=== PATIENT | female | born 2000 | race Caucasian/White ===

== ENCOUNTER 2020-12-14 20:56 | Day surgery (SDC) | payer OTHER ==
[2020-12-14 21:12] VITALS: BMI 28.3
[2020-12-14] MEDS ORDERED: hydrALAZINE 20 MG/ML VIAL SLOW IVP PRN (21:22)
[2020-12-14] MEDS ORDERED: Butorphanol Tartrate 1 MG/ML VIAL SLOW IVP PRN (21:26)
[2020-12-14] MEDS ORDERED: Lactated Ringer's 1,000 ML IV SCH (21:30)
[2020-12-14 21:55] LABS: Bilirubin Neg (Negative); Blood, Urine 10 (Negative); Clarity Clear (Clear); Glucose, Urine (Dipstick) 50 mg/dL (Negative); Ketone, Urine Negative (Negative); Leukocyte Negative (Negative); Nitrite Negative (Negative); Protein, Urine (Dipstick) 15 mg/dl (Neg-Trace); Specific Gravity, Urine 1.015 (1.002-1.036); Urobilinogen Normal mg/dL (Less than 2); pH, Urine 6.5 (5.0-9.0)
[2020-12-14 22:31] LABS: Urine Culture Reflex No No
[2020-12-14 22:41] LABS: RBC/HPF 0-3 HPF (0-3); Squamous Epithelial 0-3 HPF (0-3); WBC/HPF 0-3 HPF (0-3)
[2020-12-14 22:42] LABS: Bacteria/HPF Rare-Few HPF (None Seen)
== END 2020-12-14 23:15 | disposition home or self-care (01) ==
LOC: CSHLD/OP 20:56
PROVIDERS: ATTEND Obstetrics & Gynecology
DX: O47.03 False labor before 37 completed weeks of gestation, third trimester (principal); O99.891 Other specified diseases and conditions complicating pregnancy; R10.30 Lower abdominal pain, unspecified; Z3A.34 34 weeks gestation of pregnancy; Z79.899 Other long term (current) drug therapy
CPT/HCPCS: 51701; 81001; 99283

== ENCOUNTER 2023-06-07 00:47 | Day surgery (SDC) | payer OTHER ==
[2023-06-07] MEDS ORDERED: hydrALAZINE 20 MG/ML VIAL SLOW IVP PRN (01:49)
[2023-06-07 04:53] VITALS: BMI 27.4
[2023-06-07] MEDS ORDERED: Lactated Ringer's 1,000 ML IV SCH (05:00)
== END 2023-06-07 05:06 | disposition home or self-care (01) ==
LOC: CSHLD/OP 00:47
PROVIDERS: ATTEND Obstetrics & Gynecology
DX: O26.853 Spotting complicating pregnancy, third trimester (principal); Z3A.36 36 weeks gestation of pregnancy
CPT/HCPCS: 76815; 76819; 96360; 99283

== ENCOUNTER 2023-06-07 19:42 | Observation (INO) | payer OTHER ==
[2023-06-07 21:26] VITALS: BMI 28.3
[2023-06-07] MEDS ORDERED: hydrALAZINE 20 MG/ML VIAL SLOW IVP PRN ×2 (22:52→22:53)
[2023-06-07] MEDS ORDERED: Acetaminophen 500 MG TAB PO PRN (22:53)
[2023-06-07] MEDS ORDERED: Ondansetron PF 4 MG/2 ML Vial IVP PRN (22:53)
[2023-06-07] MEDS ORDERED: fentaNYL 50 mcg/mL 1 mL Vial SLOW IVP PRN (22:53)
[2023-06-07] MEDS ORDERED: Promethazine HCl 25 MG/ML VIAL IM PRN (22:53)
[2023-06-07] MEDS ORDERED: Dextrose 5%-Lactated Ringers 1,000 ML IV SCH (23:00)
[2023-06-07] MEDS ORDERED: Lactated Ringer's 1,000 ML IV SCH (23:00)
[2023-06-07] MEDS ORDERED: hydrOXYzine Pamoate 25 mg Capsule PO SCH (23:15)
[2023-06-08] MEDS ORDERED: Betamet Acet/Betamet Na Ph 30 MG/5 ML VIAL IM SCH (08:45)
[2023-06-08 09:47] LABS: Bilirubin Neg (Negative); Blood, Urine 10 (Negative); Clarity Clear (Clear); Glucose, Urine (Dipstick) 100 mg/dL (Negative); Ketone, Urine 5 mg/dL (Negative); Leukocyte Negative (Negative); Nitrite Negative (Negative); Protein, Urine (Dipstick) 30 mg/dl (Neg-Trace); Specific Gravity, Urine 1.025 (1.005-1.030)
[2023-06-08 09:57] LABS: Bacteria/HPF None Seen HPF (None Seen); CAUTI Indications for Culture Pregnancy; RBC/HPF None Seen HPF (0-3); Squamous Epithelial 0-3 HPF (0-3); WBC/HPF 0-3 HPF (0-3)
[2023-06-08 09:58] LABS: Urine Culture Reflex Yes Yes
[2023-06-08] MEDS ORDERED: hydrOXYzine Pamoate 25 mg Capsule PO SCH ×2 (21:00)
== END 2023-06-08 10:31 | disposition home or self-care (01) ==
LOC: CSHLD/OP 19:42 → CSHLD 22:53 → UNDOADMOB 06-08 00:16 → CSHLD 06-08 00:16 → UNDODISOB 06-08 10:31
PROVIDERS: ADMIT Obstetrics & Gynecology; ATTEND Obstetrics & Gynecology
DX: O47.03 False labor before 37 completed weeks of gestation, third trimester (principal); Z3A.36 36 weeks gestation of pregnancy; O26.853 Spotting complicating pregnancy, third trimester
CPT/HCPCS: 76815; 76819; 81001; 87086; 96360; 96361; 99283; G0378; J0702; Q0177

== ENCOUNTER 2023-06-15 09:00 | Inpatient (IN) | payer OTHER ==
[2023-06-15] MEDS ORDERED: Misoprostol 200 MCG TAB PR PRN ×2 (09:08→15:19)
[2023-06-15] MEDS ORDERED: Ondansetron PF 4 MG/2 ML Vial IVP PRN ×3 (09:08→15:19)
[2023-06-15] MEDS ORDERED: Famotidine/PF 20 mg/2ml Vial SLOW IVP PRN (09:08)
[2023-06-15] MEDS ORDERED: Promethazine HCl 25 MG/ML VIAL IM PRN ×2 (09:08→10:19)
[2023-06-15] MEDS ORDERED: hydrALAZINE 20 MG/ML VIAL SLOW IVP PRN ×2 (09:08→15:19)
[2023-06-15] MEDS ORDERED: Diphenoxylate HCl/Atropine Tablet PO PRN ×2 (09:08)
[2023-06-15] MEDS ORDERED: Carboprost 250 MCG/ML AMP IM PRN (09:08)
[2023-06-15] MEDS ORDERED: Bicitra 30 ML UDCUP PO PRN (09:08)
[2023-06-15] MEDS ORDERED: Lactated Ringer's 1,000 ML IV SCH (09:15)
[2023-06-15] MEDS ORDERED: Oxytocin 30 units/NS 500 ML 500 ML IV SCH (09:15)
[2023-06-15] MEDS ORDERED: CEFAZOLIN 2 GM in Sodium Chloride 0.9% 100 ML IVPB SCH (09:15)
[2023-06-15 09:52] VITALS: BMI 28.0
[2023-06-15 09:54] LABS: Hematocrit 32.1 % (34.9-44.5); Hemoglobin 10.6 g/dL (12.0-15.5); Mean Corpuscular Hemoglobin 26.9 pg (27.0-33.0); Mean Corpuscular Volume 81.5 fl (81.6-98.3); Mean Platelet Volume 10.1 fl (7.4-10.4); Platelet Count 271 10x3/uL (150-450); RBC Distribution Width 14.5 % (11.5-14.5); Red Blood Cell (RBC) Count 3.94 10x6/uL (3.90-5.03); White Blood Cell (WBC) Count 13.1 10x3/uL (3.5-10.5)
[2023-06-15] MEDS ORDERED: Promethazine HCl 25 MG SUPP PR PRN (10:19)
[2023-06-15] MEDS ORDERED: diphenhydrAMINE 50 MG/ML VIAL IVP PRN (10:19)
[2023-06-15] MEDS ORDERED: Ketorolac Tromethamine 30 MG/ML VIAL IVP PRN (10:19)
[2023-06-15] MEDS ORDERED: Naloxone HCl 0.4 mg/ml Vial IV PRN (10:19)
[2023-06-15] MEDS ORDERED: Naloxone HCl 0.4 mg/ml Vial IVP PRN ×2 (10:19)
[2023-06-15] MEDS ORDERED: Moisturizing Cream (Eucerin) 113 GM JAR TOP PRN (10:19)
[2023-06-15] MEDS ORDERED: ePHEDrine Sulfate 50 MG/10 ML VIAL ONE (10:25)
[2023-06-15] MEDS ORDERED: Oxytocin 10 UNITS/ML VIAL ONE (10:25)
[2023-06-15] MEDS ORDERED: Phenylephrine 40 MG/NS 250 ML 250 ML ONE (10:25)
[2023-06-15] MEDS ORDERED: Famotidine/PF 20 mg/2ml Vial ONE (10:25)
[2023-06-15] MEDS ORDERED: Lidocaine 1% PF 5 ML VIAL ONE (10:25)
[2023-06-15] MEDS ORDERED: PHENYLEPHRINE-NS 100 MCG/ML 10 ML SYRINGE ONE (10:25)
[2023-06-15] MEDS ORDERED: Ondansetron PF 4 MG/2 ML Vial ONE (10:25)
[2023-06-15] MEDS ORDERED: Bupivacaine 0.75% W/DEXTROSE 8.25% 2 ML AMP ONE (10:25)
[2023-06-15] MEDS ORDERED: Morphine PF 10 MG/10 ML VIAL ONE (10:25)
[2023-06-15] MEDS ORDERED: fentaNYL 50 mcg/mL 1 mL Vial ONE (10:25)
[2023-06-15] MEDS ORDERED: Dexamethasone 4 mg/ml Vial ONE (10:25)
[2023-06-15] MEDS ORDERED: Communication Order-Pharmacy FS SCH (10:30)
[2023-06-15 10:38] LABS: HIV (1/2) Antibody/Antigen Non-Reactive (NonReactive); Syphilis Antibody Nonreactive (Nonreactive); Syphilis Antibody Index 0.03 S/CO (<1.00 Non-Reactive)
[2023-06-15 10:40] LABS: HBSAg Index 0.16 S/CO (0-0.99); Hep B Surf Ag - L&D Non-Reactive S/CO (NonReactive)
[2023-06-15] MEDS ORDERED: Phytonadione Neonatal 1 MG/0.5 ML AMP ONE (11:40)
[2023-06-15] MEDS ORDERED: Erythromycin Base 0.5% Oint 1 GM TUBE ONE (11:40)
[2023-06-15] MEDS ORDERED: Ketorolac Tromethamine 30 MG/ML VIAL ONE (12:02)
[2023-06-15] MEDS ORDERED: Methylergonovine 0.2 MG/ML VIAL ONE (12:14)
[2023-06-15] MEDS ORDERED: diphenhydrAMINE 25 MG CAP PO PRN (15:19)
[2023-06-15] MEDS ORDERED: Boostrix 0.5 ML (Tdap) VIAL (>/=7 yrs of age) IM ONE (15:19)
[2023-06-15] MEDS ORDERED: Lanolin Ointment 7 GM TUBE TOP PRN (15:19)
[2023-06-15] MEDS ORDERED: Acetaminophen 325 MG TAB PO PRN (15:19)
[2023-06-15] MEDS ORDERED: Methylergonovine 0.2 MG/ML VIAL IM PRN (15:19)
[2023-06-15] MEDS ORDERED: HYDROcodone/Acetaminophen 5/325 mg Tablet PO PRN (22:30)
[2023-06-16] MEDS: Ferrous Sulfate 325 MG TAB PO SCH ×3 (01:23→22:02)
[2023-06-16] MEDS: HYDROcodone/Acetaminophen 5/325 mg Tablet PO PRN ×4 (01:27→19:38)
[2023-06-16 04:17] LABS: Hematocrit 26.8 % (34.9-44.5); Hemoglobin 8.7 g/dL (12.0-15.5); Mean Corpuscular HGB CONC 32.5 g/dL (32.0-36.0); Mean Corpuscular Hemoglobin 26.4 pg (27.0-33.0); Mean Corpuscular Volume 81.2 fl (81.6-98.3); Mean Platelet Volume 10.5 fl (7.4-10.4); Platelet Count 239 10x3/uL (150-450); RBC Distribution Width 14.5 % (11.5-14.5); White Blood Cell (WBC) Count 18.7 10x3/uL (3.5-10.5)
[2023-06-16] MEDS: Simethicone Chewable 80 MG TAB PO PRN ×2 (08:12→12:27)
[2023-06-16] MEDS: Polyethylene Glycol 3350 17 GM Packet PO SCH (08:13)
[2023-06-16] MEDS: Prenatal Vitamin 1 TAB PO SCH (08:13)
[2023-06-16] MEDS: Ibuprofen 800 MG TAB PO SCH ×2 (12:26→22:02)
[2023-06-17] MEDS: Ibuprofen 800 MG TAB PO SCH (05:29)
[2023-06-17] MEDS: Polyethylene Glycol 3350 17 GM Packet PO SCH (08:06)
[2023-06-17] MEDS: Prenatal Vitamin 1 TAB PO SCH (08:06)
[2023-06-17] MEDS: Ferrous Sulfate 325 MG TAB PO SCH (08:06)
[2023-06-17] MEDS: HYDROcodone/Acetaminophen 5/325 mg Tablet PO PRN (09:31)
[2023-06-17 11:54] VITALS: BP 122/59; TEMP 98.6
== END 2023-06-17 13:00 | disposition home or self-care (01) | DRG 788 ==
LOC: CSHLD 09:00 → CSHPP 14:49
PROVIDERS: ADMIT Obstetrics & Gynecology; ATTEND Obstetrics & Gynecology
PROC: 10D00Z1 Extraction of Products of Conception, Low, Open Approach (ICD-10-PCS; principal; 2023-06-15)
DX: O99.02 Anemia complicating childbirth (principal); O99.824 Streptococcus B carrier state complicating childbirth; O34.211 Maternal care for low transverse scar from previous cesarean delivery; Z3A.37 37 weeks gestation of pregnancy; Z37.0 Single live birth
CPT/HCPCS: 36415; 51702; 85027; 86780; 86850; 86900; 86901; 87340; 87389; J1100; J1885; J2210; J2274; J2405; J2590; J3010; J3490; S0028